=== PATIENT | male | born 2000 | race Caucasian/White ===

== ENCOUNTER 2025-05-13 17:50 | Emergency (ER) | payer SELFPAY ==
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
[2025-05-13 18:01] VITALS: BP 156/93; PULSE 70; RESP 14; TEMP 37.1; O2SAT 99; BMI 33.0
--- NOTE | 2025-05-13 18:20 | ED_ITS ---
<Statement entered by Tan Santos MD - 05/13/25 23:32> I was consulted by the IDALIA, and we discussed the complexity of the problems being addressed. I approved the treatment and management plan for this patient's care in the emergency department, thus performing a substantive portion of the medical decision making. Tan Santos MD Discharge Plan Disposition Patient Disposition: Home, Self-Care Prescriptions Prescriptions: New clindamycin HCl [Cleocin HCl] 300 mg capsule 300 mg PO BID 7 Days Qty: 14 0RF Referrals Follow up/Referrals: Provider,Referral, [Primary Care Provider, Medical] - See instructions Activity Restrictions/Add. Instructions Additional Instructions/Restrictions: Walk In Dental Clinic M-F 08:00-10:30am Please arrive at 07:00am Krishna Pay Please take the medication as directed. You may take [id number] Tylenol. Please follow-up with walk-in dental clinic if you are unable to get a dentist appointment. Return to the ED for worsening of condition. Clinical Impressions Clinical Impression: Pain, dental Instructions Patient Instructions: DI for Dental Pain Print Language Print Language: Swedish Discharge ED Provider: Tan Santos General Adult HPI General Chief complaint: Dental/Oral Stated complaint: Toothache Time Seen by Provider: 05/13/25 17:58 Mode of Arrival: Ambulatory Source of Information: Patient Description of Symptoms (Recalled from ER Triage Doc. by RN): pt c/o L lower molar pain. pt reports breaking his tooth on 12/08. pt states he has not seen a dentist due to not having insurance. pt states the pain is 10/10. He reports ibuprofen helps minimally. pt reports over the last two weeks the pain has worsened over the last two weeks. pt has edema to his L lower face. History of Present Illness HPI narrative: Patient is a 24-year-old male no significant PMH who presents to the ED for left lower dental pain. Patient states he fractured his left molar a while ago how er has been unable to obtain dental care due to no insurance. He states that he attempted to clean the area daily however recently he is concerned that it is infected. Related Data Previous Rx's ?Medication ?Instructions ?Recorded clindamycin HCl 300 mg capsule 300 mg PO BID 7 days #1 4 caps 05/13/25 (Cleocin HCl) Allergies Allergy/AdvReac Type Severity Reaction Status Date / Time amoxicillin Allergy Unknown Verified 05/13/25 18:21 allergy reaction azithromycin (From Zithromax) Allergy Hives Verified 05/13/25 18:24 [facility] Disclaimer: The information contained in this section may have been updated after the patient was seen, as this information can be updated by other users. Social History Smoking Status: Former smoker alcohol intake: never current occupational status: unemployed Travel in the last 8 weeks?: None ROS Obtained: Yes Systems reviewed as appropriate & no additional complaints except as documented Physical Exam General General appearance: alert and in no apparent distress Head Head exam: atraumatic Eye Eye exam: Present normal appearance ENT ENT exam: Present other (mild left sided facial edema, left molar fracture, tenderness ) Neck Neck exam: Present normal inspection Chest Chest inspection: Present normal inspection Respiratory Respiratory exam: Present normal lung sounds bilaterally Cardiovascular Cardiovascular exam: Present regular rate Abdominal Exam Abdominal exam: Present soft Extremities Exam Extremities exam: Present normal inspection Neurological Exam Neurological exam: Present alert and oriented X3 Medical Decision Making Medical Records Screening: Per USPSTF and CDC recommendations, given the prevalence of disease in our region, it is our hospital?s policy to screen for HIV and viral Hepatitis for all patients aged 18 and over and those with ongoing risk factors. Heri Inquiry Pt receiving controlled substance: No Vital Signs: 05/13/25 18:01 05/13/25 18:41 Temperature 98.7 F 98.7 F Temperature Source Oral Pulse Rate 71 Pulse Rate [Left] 70 Respiratory Rate 14 14 Blood Pressure 163/97 H Blood Pressure [Right Arm] 156/93 H Blood Pressure Mean [Right Arm] 114 Blood Pressure Source [Right Arm] Automatic Cuff Blood Pressure Position [Right Arm] Sitting 02 Sat by Pulse Oximetry 99 Oxygen Delivery Method Room Air Orders (Tests/Meds): ED MEDICATIONS Discontinued Medications Generic Name Dose Route Start Last Admin Trade Name Freq PRN Reason Stop Dose Admin Hydrocodone Bitart/Acetaminophen 1 tab 05/13/25 18:17 05/13/25 18:35 Apap/Hydrocodone 325mg/7.5mg Tab PO 05/13/25 18:18 1 tab ONCE ONE Administration Benzocaine/Butamben/Tetracaine HCl 1 gm 05/13/25 18:09 05/13/25 18:35 Tetracaine/Benzocaine/Butamben 56 Gm [place] TP 06/12/25 18:08 1 gm NEEDED PRN Administration Mild to Moderate Pain (1-6) Clindamycin HCl 300 mg 05/13/25 18:45 05/13/25 18:47 Clindamycin 150mg Capsule PO 05/13/25 18:46 300 mg ONCE ONE Administration Lidocaine HCl 15 ml 05/13/25 18:09 05/13/25 18:35 Lidocaine 2% Viscous Concepcion 15ml Udc PO 05/13/25 18:10 15 ml ONCE ONE Administration Medical Decision Narrative: In summary, patient is a 24-year-old male no significant PMHx who presents to the ED for left lower dental pain. Patient states he fractured his left molar a while ago however has been unable to obtain dental care due to no insurance. He states that he attempted to clean the area daily however recently he is concerned that it is infected. Patient has mild left-sided facial swelling that started today. He states that his tooth pain has increased significantly. No trismus noted. No difficulty swallowing. Patient has not been evaluated for this complaint before. He has not been on any recent antibiotics. He has not had anything for pain other than ibuprofen which he states is no longer helping. Upon initial evaluation patient is alert, oriented and cooperative. He is tearful due to pain. He has left lower molar fracture, mild left facial edema. No edema in neck. Discussed with patient we could perform dental block, patient declines at this time. Advised him we can start him on clindamycin, he is allergic to penicillin. I advised we will administer 1 hydrocodone while in the ED. Advised him at home he may take [id number] Tylenol. Patient was given the [facility] information & advised to utilize the walk-in clinic. I printed patient a GoodRx coupon to use for his antibiotics as he does not have insurance. We discussed return precautions to the ED and patient verbalized understanding. Critical Care Critical Care Time Critical Care Time: No
[2025-05-13] MEDS: TETRACAINE/BENZOCAINE/BUTAMBEN 56 GM SPRAY TP (18:35)
[2025-05-13] MEDS: APAP/HYDROCODONE 325MG/7.5MG TAB 1 TAB PO (18:35)
[2025-05-13] MEDS: LIDOCAINE 2% VISCOUS SOL 15ML UDC 15 ML PO (18:35)
[2025-05-13 18:41] VITALS: BP 163/97; PULSE 71; RESP 14; TEMP 37.1; O2SAT 99
[2025-05-13] MEDS: CLINDAMYCIN 150MG CAPSULE 300 MG PO (18:47)
== END 2025-05-13 18:42 | disposition home or self-care (01) ==
PROVIDERS: Emergency Provider Emergency Medicine
DX: R22.0 Localized swelling, mass and lump, head (principal); K08.89 Other specified disorders of teeth and supporting structures
CPT/HCPCS: 99283